=== PATIENT | male | born 1950 | race Asian ===

== ENCOUNTER 2024-10-26 07:06 | Day surgery (SDC) | payer OTHER ==
[~2024-10-26] VITALS: Ht 167.6 cm; Wt 75.9 kg
[~2024-10-26 07:06] MED LIST: SODIUM CHLORIDE 0.9% 1,000 ML ONE
[2024-10-26] MEDS: SODIUM CHLORIDE 0.9% 1,000 ML IV ONE (08:06)
[2024-10-26] MEDS ORDERED: FentaNYL CITRATE PF 100 MCG/2 ML VIAL ONE (08:14)
[2024-10-26] MEDS ORDERED: MIDAZOLAM HCL 2 MG/2 ML VIAL ONE (08:14)
[2024-10-26 08:21] LABS: GLUCOMETER DEV NAME(LOC) SDS.; GLUCOSE,POINT OF CARE 130 MG/DL (70-110)
[2024-10-26 10:00] VITALS: PULSE 78; RESP 16; O2SAT 78; O2SAT 98
[2024-10-26] MEDS ORDERED: MethylPREDNISolone SOD SUCC 125 MG/2 ML VIAL ONE (10:15)
[2024-10-26] MEDS: MethylPREDNISolone SOD SUCC 125 MG/2 ML VIAL IVP ONE (10:28)
[2024-10-26] MEDS ORDERED: ALBUTEROL SULFATE 2.5 MG/0.5 ML NEB SOLUTION NEB ONE (12:00)
[2024-10-26] MEDS ORDERED: LIDOCAINE 4% 50 ML SOLUTION ONE (12:00)
[2024-10-26] MEDS ORDERED: BENZOCAINE 20% 50 MCG/SPRAY 57 GM ONE (12:00)
[2024-10-26] MEDS ORDERED: LIDOCAINE 2% 11 ML JELLY ONE (12:00)
== END 2024-10-26 12:10 | disposition home or self-care (01) ==
LOC: SURGERY 07:06
PROVIDERS: ATTEND Internal Medicine Critical Care Medicine
DX: R04.2 Hemoptysis (principal); R05.3 Chronic cough; I10 Essential (primary) hypertension; J38.4 Edema of larynx; B37.0 Candidal stomatitis; E11.9 Type 2 diabetes mellitus without complications; Z90.49 Acquired absence of other specified parts of digestive tract; Z98.890 Other specified postprocedural states; Z20.822 Contact with and (suspected) exposure to COVID-19; Z79.899 Other long term (current) drug therapy
CPT/HCPCS: 31623; 82962; 87206; 87101; 87220; 87070; 88108; 31624; 94640; 71045; 87015; J3010; J2250; J2919; J7030; J7613; Z7610